=== PATIENT | male | born 1985 ===

== ENCOUNTER → 2019-05-31 | Outpatient (CLI) | payer OTHER ==
[2019-05-31 15:23] LABS: Albumin 4.6 g/dL (3.4-5.0); Bilirubin, Direct 0.1 mg/dL (0-0.2)
[2019-05-31 15:26] LABS: Bilirubin, Total 0.4 mg/dL (0.2-1.0); Total Protein 8.7 g/dL (6.4-8.2)
== END | disposition home or self-care (01) ==
LOC: LAB 14:17
PROVIDERS: ATTEND Urology
DX: N45.1 Epididymitis (principal)
CPT/HCPCS: 36415; 80076; 82105; 83615; 84702